=== PATIENT | female | born 1950 | race Caucasian/White ===

== ENCOUNTER 2020-10-18 14:11 | Outpatient (CLI) | payer OTHER, SELFPAY ==
--- NOTE | 2020-10-18 14:30 | ECG_ITS ---
Measurements Intervals [place] Rate: 75 P: 38 OH: 145 QRS: -16 QRSD: 97 T: 31 QT: 373 QTc: 419 Interpretive Statements SINUS RHYTHM DELAYED PRECORDIAL R/S TRANSITION LOW QRS VOLTAGE IN PRECORDIAL LEADS BASELINE ARTIFACT- II, AVR, AVF BORDERLINE ECG Electronically Signed On 10-18-2020 14:30:09 CDT by Blake Ramos D.O.
[2020-10-18 14:42] LABS: Hematocrit 36.7 % (37.0-47.0); Hemoglobin 11.8 g/dL (12.0-15.0)
== END 2020-10-18 14:12 | disposition home or self-care (01) ==
LOC: ANHSURGERY 14:14
PROVIDERS: Anesthesiology; PCP Family Medicine; Visit Provider Surgery Plastic and Reconstructive Surgery
DX: L57.4 Cutis laxa senilis (principal); R94.31 Abnormal electrocardiogram [ECG] [EKG]
CPT/HCPCS: 36415; 85014; 85018; 93005

== ENCOUNTER 2020-10-19 02:08 | Day surgery (SDC) | payer OTHER, SELFPAY ==
[2020-10-18 08:40] VITALS: BMI 27.2
--- NOTE | 2020-10-18 13:57 | WPDANESEPPF ---
Anes - Initial Pre Proc Eval Procedure: Operation Date: 10/19/20 08:30 Proposed Procedures p Face Lift With Facial Fat Grafting - Tano Saeed MD s Neck Lift - Tano Saeed MD Date/Time: 10/18/20 13:57 Surgeon: Tano Saeed MD Pre Op Diagnosis: Skin Laxity Patient Data Age: 70 Gender: F Height: 1.7 m Weight: 79 kg Allergies Allergy/AdvReac Type Severity Reaction Status Date / Time No Known Allergies Allergy Unverified 10/19/20 07:47 Home Medications Medication Instructions Recorded Confirmed Type acetaminophen [Tylenol Arthritis] 650 - 1,300 mg PO QID 10/18/20 10/19/20 History gabapentin 600 - 1,200 mg PO Q6-8H 10/18/20 10/19/20 History ondansetron HCl [Zofran] 4 mg PO Q8H PRN 10/18/20 10/19/20 History sertraline 150 mg PO QACLUNCH 10/18/20 10/19/20 History tramadol 50 mg PO QID 10/18/20 10/19/20 History valacyclovir [Valtrex] 500 mg PO BID PRN 10/18/20 10/19/20 History Patient hx anesthesia problems: none Family hx anesthesia problems: none [facility] Past Medical History Medical History (Updated 10/18/20 @ 13:57 by Alex Zapien MD) Depression MIGUE (obstructive sleep apnea) Social History Social History Smoking status: Unknown if ever smoked Alcohol intake: current Drinks per week: 1 Substance use: never Living arrangements: with family Additional living arrangements comments: DAUGHTER Spiritual care concerns: No Anes - Eval Final PreProcedure Day of Procedure 10/18/20 13:57 Patient weight: overweight Heart: regular rate and rhythm Lungs: clear to auscultation Airway: Mallampati scale class II Neurological: alert and oriented Last oral intake: >/= 8 hours ASA classification: II Emergent: no Anesthetic plan: proceed Anesthesia type and monitoring: general ETT and standard monitoring Informed Consent: The patient's anesthetic plan and its attendant risks and benefits were discussed with the patient/family/POA. Questions were solicited and answers provided to the satisfaction of the patient/family/POA.
[2020-10-19] VITALS (9 sets, daily range): BP systolic 105–164; BP diastolic 76–93; PULSE 80–114; RESP 12–20; TEMP 36–37.1; O2SAT 97–98
--- NOTE | 2020-10-19 06:59 | WPDHPUPDATE1 ---
History and Physical Update Update Date/Time: 10/19/20 06:59 History and Physical has been reviewed, including an updated exam of the patient. There are NO changes in the patient's condition. Risks, benefits, and alternatives have been discussed and questions answered. Patient agrees to proceed with procedure.
[2020-10-19 07:22] LABS: Urine Cotinine NEGATIVE
[2020-10-19] MEDS: LACTATED RINGERS 1,000 ML 30 ML IV CONT ×3 (07:25→13:55)
[2020-10-19] MEDS: SCOPOLAMINE 1.5 MG PATCH TRANSDERM (07:29)
[2020-10-19] MEDS: ceFAZolin 2 GM/D5W 50 ML 2 GM/50 ML BAG IVPB (08:40)
[2020-10-19] MEDS: TRANEXAMIC ACID 1,000MG/ISO100 1,000 MG/100 ML BAG 200 MG IVPB (12:40)
--- NOTE | 2020-10-19 13:17 | P.OP_ITS ---
Procedure Note - Detailed Date of Procedure 10/19/20 Pre-op Diagnosis Skin Laxity Post-op Diagnosis same Procedure Performed Face and neck lift with facial fat grafting Surgeon Tano Saeed MD Anesthesia general Findings Facial fat grafting. Total volume 24cc to: * Malar * Lateral orbital rim * Zygomatica * Temporal * Nasolabial * [place] Description of Procedure Preoperatively the risks, benefits, alternatives were discussed in extensive detail. I want her to be very realistic about the risks involved as well as expectations. I was very up front honest about the limitations this procedure. Made sure answered all of her questions to her satisfaction. Consent obtained. She was marked in the preoperative holding area. Taken to the operating room placed supine on the operating room table. Anesthesia provided by anesthesiology and prepped and draped in a standard sterile fashion. Abdominal examination was completed and I tumesced the upper and lower portion of the abdomen. I used a 3 mm multi hole cannula complete suction lipectomy into a gravity separation device. We gave adequate time for separation prior to using adipose tissue for fat grafting. I proceeded with tumescent of the face. Once adequate time for hemostasis and made an incision submental and elevated skin flaps with good vascularity and adiposity to them. I then elevated the platysma muscle in the midline exposing the digastric muscle. I saw minimal submandibular gland hypertrophy and so this was not addressed. I did plicate the digastric anteriorly with 2-0 Vicryl. I then plicated the platysma in a vertical mattress fashion using 2-0 Vicryl. I verified contour prior to closure. At this point proceeded to fat grafting. Used a 1.2 mm fat grafting cannula blunt tip in order to fat graft in multiple planes and passes through 18 gauge needle sticks. We used the central adiposity discarding aqueous and lipid layers. Distribution as above. Fifteen blade used to make the face lift incisions. I elevated bilateral flaps with good adiposity on the flaps keeping good vascularized thickness. This was continued until it was continuous with the submental region. Once adequately elevated a verified strict hemostasis. I did this mass plication bilaterally with 2-0 Vicryl in multiple layers. A 10 mm Blade drains were placed bilaterally sutured into place with 3-0 Vicryl. These were crossing the submental region. Near the end of the procedure we did provide TXA. this was also in the tumescent solution. I closed submentally with 3-0 Monocryl followed by running subcuticular 4-0 Monocryl and tissue glue. Skin flaps were placed tension-free and trimmed as necessary. I closed at the lobule using 4-0 Monocryl. I then stapled the hairline incisions. Five 0 nylon along the anterior Post tragal incision. I closed postauricular using 5 0 chromic. Estimated Blood Loss 20 Drains Yes ( bilateral 10 Blade) Packing No Pathology none sent Complications No immediate complications Condition stable Disposition PACU
[2020-10-19] MEDS: fentaNYL CITRATE INJ (*CRX) 100 MCG/2 ML VIAL 25 MCG IV PUSH ×4 (13:41→13:54)
[2020-10-19] MEDS: HYDROmorphone HCL INJ (*CRX) 1 MG/ML SYR 0.25 MG IV PUSH ×3 (14:08→14:22)
[2020-10-19] MEDS: LACTATED RINGERS 1,000 ML 125 ML IV CONT (15:30)
[2020-10-19] MEDS: MORPHINE SULFATE (*CRX) 2 MG/ML INJ IV PUSH (16:47)
[2020-10-19] MEDS: SERTRALINE HCL 50 MG TABLET 150 MG PO (16:54)
[2020-10-19] MEDS: oxyCODONE/ACETAMINOPHEN (*CRX) 5-325 MG TABLET PO ×2 (17:51→21:05)
[2020-10-19] MEDS: ARTIFICIAL TEARS OPHTH SOLN 15 ML BOTTLE 1 DROP EACH EYE (18:45)
[2020-10-19] MEDS: DICLOFENAC SODIUM 0.1% OPHTH SOLN 2.5 ML BOTTLE 1 DROP EACH EYE (18:45)
[2020-10-19] MEDS: PROPARACAINE HCL 0.5% 15 ML OPHTH SOLN 1 DROP EACH EYE (18:45)
--- NOTE | 2020-10-19 19:00 | PC.NURSE ---
1450 pt admitted to room 279 per bed from PACU after face and neck lift with Dr. Saeed today at 0730. Pt is awake, alert, responding appropriately. Reports pain level is comfortable at this time. Oriented to room, staffing and procedures. VSS and assessment WNL.
[2020-10-19] MEDS: GABAPENTIN 300 MG CAPSULE 600 MG PO (21:05)
[2020-10-19] MEDS: DOCUSATE SODIUM 100 MG CAPSULE PO (21:05)
[2020-10-20] MEDS: oxyCODONE/ACETAMINOPHEN (*CRX) 5-325 MG TABLET PO ×4 (00:04→13:04)
[2020-10-20] MEDS: DICLOFENAC SODIUM 0.1% OPHTH SOLN 2.5 ML BOTTLE 1 DROP EACH EYE (02:45)
[2020-10-20] MEDS: ARTIFICIAL TEARS OPHTH SOLN 15 ML BOTTLE 1 DROP EACH EYE ×2 (02:45→05:20)
--- NOTE | 2020-10-20 02:45 | PC.NURSE ---
0225: patient calls out complaining of her left eye hurting. She said that it was a sharp pain, like something was scratching her eye in the top left corner under her top eye lid. I looked in her eye and did not see anything in her eye, just that it was very red and irritated from her rubbing it. I administered two of her scheduled eye drops (see MAR). I then gave her a cold wash rag to hold over her eye for comfort. 0245: Patient called out again saying the the pain in her eye is not feeling any better. Another nurse went down to her room and took a look at eye to see if she could see anything. All she could see was just some eye gunk on her eye ball. The nurse flushed some normal saline in the patient's eye. 0349: Anesthesia called. Given orders to administer another drop of proparacaine HCl in the left eye. Anesthesia said that from the sounds of things, he thinks that the patient might have given herself a corneal abrasion. 0400: second dose of proparacaine HCl administered. I then tapped a 2X2 gauze over her eye so that she would leave it alone.
[2020-10-20 04:00] VITALS: BP 115/80; PULSE 105; RESP 16; TEMP 37
--- NOTE | 2020-10-20 06:53 | WPDHPUPDATE1 ---
History and Physical Update Update Date/Time: 10/20/20 06:53 History and Physical has been reviewed, including an updated exam of the patient. There are NO changes in the patient's condition. Risks, benefits, and alternatives have been discussed and questions answered. Patient agrees to proceed with procedure.
[2020-10-20] MEDS: DOCUSATE SODIUM 100 MG CAPSULE PO (07:33)
[2020-10-20] MEDS: GABAPENTIN 400 MG CAPSULE 1200 MG PO (07:34)
[2020-10-20 08:00] VITALS: BP 154/82; PULSE 78; RESP 18; TEMP 36.4
--- NOTE | 2020-10-20 09:31 | WPDPN ---
Progress Note: A&P Assessment and Plan (1) Encounter for cosmetic surgery: Code(s): Z41.1 - Encounter for cosmetic surgery Status: Acute Assessment and Plan: Overall doing well however she does have left eye pain which is improving. Much improved with eye ointment. She says she has normal gross vision out of this eye. She is going to continue the eye ointment and contact us with any questions or concerns. Will plan for discharge home after face and neck lift and facial fat grafting. Follow-up. Today we had a lengthy discussion about the care after face and neck lift as well as facial fat grafting. We discussed what monitor for. Activity limitations. This was a lengthy open-ended conversation making sure she was well informed. She will continue gentle compression 23 hours per day. we are going to see her back Sunday for drain removal pending drainage. She will call with any questions or concerns in the meantime. She is going to continue the eye ointment in the left eye as this is providing significant relief. She understands if there is worsening of symptoms or no improvement over the next 24 hours to reach out for additional evaluation. We are always available she would have any questions or concerns. I will see her back. Subjective Date/time seen: 10/20/20 09:00 She states initially postoperatively she was doing well. She said later in the afternoon she rubs her left eye she believes and subsequent had significant pain. She had a white PEC material come out of that eye after she rubbed. During the night the nurses/ anesthesia tried various drops with a little improvement however still significant pain in her left eye. She says she has normal gross vision. She believes she scratched it. Otherwise she says her face list doing great. She is really having no problems or concerns. No fevers or chills. No nausea vomiting. No shortness of breath. No chest pain. No calf tenderness. Review of Systems Review of Systems: All systems reviewed & are unremarkable except as noted in HPI and below Exam Narrative: Exam Narrative: Face and neck are healing well. I see no signs of infection. No hematoma. No seroma. She is able to smile without difficulty. No evidence of facial nerve injury. Drains are becoming serosanguineous. I see no foreign body in her left eye. Today I did place lubricating eye ointment. She states after this was placed she had significant improvement. Bilateral eyes PERRLA EOMI. Normal gross vision bilateral. Objective Data Vital Signs Vital Signs: Vital Signs - 24 hr 10/19/20 13:27 10/19/20 13:40 10/19/20 13:55 Temperature 37.1 C Pulse Rate 112 H 111 H 114 H Respiratory Rate 12 12 16 Blood Pressure 129/93 H 164/76 H 157/78 H Pulse Oximetry 97 98 97 10/19/20 14:10 10/19/20 14:25 10/19/20 14:40 Temperature Pulse Rate 110 H 99 97 Respiratory Rate 14 20 Blood Pressure 137/84 140/84 152/80 H Pulse Oximetry 98 97 98 10/19/20 15:05 10/19/20 21:05 10/20/20 04:00 Temperature 37.0 C 37.1 C 37.0 C Pulse Rate 113 H 99 105 H Respiratory Rate 16 16 16 Blood Pressure 139/76 105/79 115/80 Pulse Oximetry 98 Intake/Output Intake/Output: Intake & Output 10/17/20 10/18/20 10/19/20 10/20/20 23:59 23:59 23:59 23:59 Intake Total 2250 Output Total 2131 800 Balance 119 -800 Meds/Results Medications: Active Medications Generic Name Dose Route Start Last Admin Trade Name Freq PRN Reason Stop Dose Admin Artificial Tears 1 drop 10/19/20 18:15 10/20/20 05:20 Artificial Tears Ophth Soln 15 Ml Bottle EACH EYE 1 drop Q2H PRN Administration Dry Eye(s) Diclofenac Sodium 1 drop 10/19/20 19:00 10/20/20 02:45 Diclofenac Sodium 0.1% Ophth Soln 2.5 Ml Bottle EACH EYE 1 drop Q8H CEE Administration Docusate Sodium 100 mg 10/19/20 21:00 10/20/20 07:33 Docusate Sodium 100 Mg Capsule PO 100 mg Q12HR CEE Adminis
--- NOTE | 2020-10-20 09:39 | P.DS_ITS ---
DS: Admitting Diagnosis Admitting Diagnosis Admitting Diagnosis: face/neck laxity DS: Discharge Diagnosis Discharge Diagnosis (1) Encounter for cosmetic surgery: Code(s): Z41.1 - Encounter for cosmetic surgery Status: Acute DS: Summary Hospital Course Hospital Course: Patient underwent face and neck lift with facial fat grafting. She was doing very well until late in the afternoon yesterday which time she scratched her left eye. She has had some discomfort and now with eye ointment she is seen significant improvement. Will monitor closely. Will plan for discharge home. She has a full list of instructions. We will see her back on Sunday. Time Spent with Patient Time attestation: Total time spent providing and/or coordinating discharge services: 30 minutes Exam Narrative: Exam Narrative: Face and neck are healing well. I see no signs of infection. No hematoma. No seroma. She is able to smile without difficulty. No evidence of facial nerve injury. Drains are becoming serosanguineous. I see no foreign body in her left eye. Today I did place lubricating eye ointment. She states after this was placed she had significant improvement. Bilateral eyes PERRLA EOMI. Normal gross vision bilateral. Discharge Plan Discharge Patient Disposition: Home, Self-Care Discharge Instructions: POST OPERATIVE DISCHARGE INSTRUCTIONS FOR TANO SAEED M.D. [facility] [address] [place] [address] * No driving for 24 hours after anesthesia and while you are taking pain medication. * Take all prescribed medication as directed * Diet as tolerated. * No lifting or activity that raises blood pressure for 48 hours. * Regular walking / ambulation. * No showering until directed to. Once you shower do not take pain medication before showering as the combination of medication and heat may cause you to feel dizzy or pass out. * No pools or tubs for 2 weeks. * Call with any questions or concerns. * Dressing Care: Drain care. Continue face lift garment 23 hours per day. * Genteal eye ointment left eye as needed. If worsening of left eye symptoms or no improvement over the next 24 hours please reach out. If you have any questions or concerns, please call the office . If it is after hours you will be directed to the travel accommodation inspector exchange. Shortness of breath, chest pain, or other medical emergency dial 911 / proceed to the Emergency Room. Patient Instructions: [facility] (GEN) Stand Alone Forms: General Discharge Instructions Follow-up/Referrals: Tano Saeed MD [Physician] - Other (Sunday10/22/2020.) Discharge Medications: New GenTeal Tears Severe Gel Drops 0.4-0.3 % drops,gel 1 drp ophthalmic (eye) PRN Qty: 8 RF: 0 Continued gabapentin 600 mg tablet 600 - 1,200 mg PO Q6-8H RF: 0 tramadol 50 mg tablet 50 mg PO QID RF: 0 acetaminophen 650 mg Tablet Extended Release 650 - 1,300 mg PO QID RF: 0 sertraline 100 mg tablet 150 mg PO QACLUNCH RF: 0 valacyclovir [Valtrex] 1 gram tablet 500 mg PO BID PRN (Reason: Inflammation) RF: 0 ondansetron HCl [Zofran] 4 mg tablet 4 mg PO Q8H PRN (Reason: Nausea) RF: 0
[2020-10-20] MEDS: SERTRALINE HCL 50 MG TABLET 150 MG PO (13:04)
[2020-10-20] MEDS: GABAPENTIN 300 MG CAPSULE 600 MG PO (13:05)
--- NOTE | 2020-10-20 14:47 | PC.NURSE ---
Spoke with Danielle AREVALO. in surgery room. Instructed to inform Dr. Saeed that pt. requesting to see him if possible regarding left eye. Pt. states that eye continues to hurt and feels as if something is in it. Lubricant and Visine used as needed per instructions but pt. states she is still in pain. No orders received. Will wait for Dr. Saeed to visit.
== END 2020-10-20 14:59 | disposition home or self-care (01) ==
LOC: ANHSURGERY 13:26 → ANHOB2 14:56
PROVIDERS: PCP Family Medicine; Visit Provider Surgery Plastic and Reconstructive Surgery
PROC: (CPT 15824; principal; 2020-10-19 08:30)
PROC: (CPT 15819; 2020-10-19 08:30)
DX: Z41.1 Encounter for cosmetic surgery (principal); L57.4 Cutis laxa senilis; G47.33 Obstructive sleep apnea (adult) (pediatric); F32.9 Major depressive disorder, single episode, unspecified; Z79.899 Other long term (current) drug therapy
CPT/HCPCS: 15825; 15773; 80307; 99199; A9270; J0171; J0690; J1100; J1170; J2250; J2270; J2370; J2405; J2704; J3010; J7030; J7120; Q9968